=== PATIENT | female | born 1970 | race American Indian/Alaskan Native ===

== ENCOUNTER 2020-12-17 20:58 | Emergency (ER) | payer OTHER ==
--- NOTE | 2020-12-18 02:06 | XRay Report ---
CHEST 1 VIEW 12/18/2020 12:51 AM INDICATION / CLINICAL INFORMATION: cough. COMPARISON: None available. FINDINGS: SUPPORT DEVICES: None. HEART / MEDIASTINUM: No significant abnormality. LUNGS / PLEURA: Mild opacity left base laterally. Right lung clear. No pneumothorax. ADDITIONAL FINDINGS: No significant additional findings. IMPRESSION: Left basilar atelectasis versus developing pneumonia. Signer Name: Jaswant Newsome MD Signed: 12/18/2020 2:02 AM Workstation Name: [id number]
[2020-12-18] MEDS ORDERED: AZITHROMYCIN/NS 500 MG/250 ML 500 MG/250 ML BAG IV ONE (03:45)
[2020-12-18] MEDS ORDERED: SODIUM CHLORIDE 0.9% 1000 ML 1,000 ML IV ONE (03:45)
[2020-12-18] MEDS ORDERED: LIDOCAINE-MPF (1%) 10 MG/1 ML VIAL 5 ML INFILTRATI ONE (03:45)
[2020-12-18] MEDS ORDERED: ALBUTEROL 2.5 MG/3 ML NEBU IH ONE (03:45)
[2020-12-18] MEDS ORDERED: IPRATROPIUM 0.02% NEBU 2.5 ML IH ONE (03:45)
--- NOTE | 2020-12-18 03:49 | Emergency Department Report ---
ED General Adult HPI - General Chief complaint: Upper Respiratory Infection Stated complaint: COUGH UP MUCUS Time Seen by Provider: 12/18/20 03:40 Source: patient Mode of arrival: Ambulatory Limitations: No Limitations - History of Present Illness Initial comments: 50-year-old female patient presents to emergency department with complaints of productive cough for 1 week. Patient did not receive her COVID-19 vaccination series. Patient has no known history of pre-existing lung conditions. Denies fever, chills, chest pain, shortness of breath, wheezing, hemoptysis, vomiting, diarrhea. Denies all other complaints at this time. - Related Data Previous Rx's Medication Instructions Recorded Last Taken Type Amoxicillin/Potassium Clav 2,000 mg PO BID 7 Days tab.er.12h 12/18/20 Unknown Rx [Augmentin XR 1000MG 12HR] Azithromycin [Zithromax] 250 mg PO DAILY #5 tablet 12/18/20 Unknown Rx Benzonatate [Tessalon Perles] 200 mg PO Q8HR #20 capsule 12/18/20 Unknown Rx metFORMIN [Glucophage] 500 mg PO BID 10 Days tablet 12/18/20 Unknown Rx Allergies Allergy/AdvReac Type Severity Reaction Status Date / Time No Known Allergies Allergy Verified 12/18/20 01:23 ED Review of Systems ROS: Stated complaint: COUGH UP MUCUS Other details as noted in HPI Other: GENERAL: Negative for fever, chills, weight change, anorexia, fatigue. ENT: Negative for ear pain, difficulty hearing, sore throat, nasal congestion, epistaxis. CARDIOVASCULAR: Negative for chest pain, palpitations, lower extremity swelling. PULMONARY: Positive for cough. GASTROINTESTINAL: Negative for abdominal pain, nausea, vomiting, diarrhea, constipation. MUSCULOSKELETAL: Negative for joint pain, joint swelling, myalgias, back pain, neck pain. NEUROLOGICAL: Negative for headache, seizure, syncope, paresthesias, weakness. INTEGUMENTARY: Negative for erythema, rash, diaphoresis, laceration, ecchymosis. HEMATOLOGICAL: Negative for hemoptysis, hematemesis, hematochezia, hematuria. PSYCHIATRIC: Negative for hallucinations, suicidal ideation, homicidal ideation, anxiety, depression. ED Past Medical Hx - Past Medical History Previous Medical History?: Yes Hx Hypertension: Yes - Surgical History Past Surgical History?: Yes Additional Surgical History: knee surgery, tubal ligation - Social History Smoking Status: Never Smoker Substance Use Type: None - Medications Home Medications: Home Medications Medication Instructions Recorded Confirmed Last Taken Type Amoxicillin/Potassium Clav 2,000 mg PO BID 7 Days tab.er.12h 12/18/20 Unknown Rx [Augmentin XR 1000MG 12HR] Azithromycin [Zithromax] 250 mg PO DAILY #5 tablet 12/18/20 Unknown Rx Benzonatate [Tessalon Perles] 200 mg PO Q8HR #20 capsule 12/18/20 Unknown Rx metFORMIN [Glucophage] 500 mg PO BID 10 Days tablet 12/18/20 Unknown Rx ED Physical Exam - General Limitations: No Limitations - Other Other exam information: General: Awake and alert. No acute distress. Head: Atraumatic, normocephalic. Eyes: EOMI. Pupils are equal and round. Normal sclera and conjunctiva. ENT: Oral mucosa is moist. Normal pharyngeal exam. Neck: Supple. No lymphadenopathy. Pulmonary: Productive cough on exam. No respiratory distress. Rhonchi and expiratory wheezing heard posteriorly along the right lower lobe. Cardiac: Tachycardic. Pulses are palpable and equal bilaterally. No lower extremity cyanosis or edema. Skin: Warm and dry. No rashes. Abdomen: Soft, non-tender, non-protuberant. No guarding, rigidity, or rebound. Bowel sounds are normal. No organomegaly or masses noted. Back: Normal alignment. No CVA tenderness. Extremities: Symmetrical. Full range of motion intact. Neurological: Alert and oriented, appropriately interactive, no focal deficits. Psych: Cooperative. Appropriate mood and affect. Speech is evenly metered. Thoughts are logically construed. ED Course Vital Signs 12/18/20 01:20 Temperature 98.7 F Pulse Rate 129 H Respiratory 18 Rate Blood Pressure 151/109 [Left] O2 Sat by Pulse 96 Oximetry ED Medical Decision Making - Lab Data Result diagrams: 12/18/20 03:53 12/18/20 03:53 - Radiology Data [facility] [address] [place] [address] XRay Report Signed Patient: MURIEL ADAN MR#: [id number] : 1970 Acct:[id number] Age/Sex: 50 / F ADM Date: 12/17/20 Loc: ED Attending Dr: Ordering Physician: ED MD SANIA Date of Service: 12/18/20 Procedure(s): XR chest 1V ap Accession Number(s): [id number] cc: MARK LUI MD Fluoro Time In Minutes: CHEST 1 VIEW 12/18/2020 12:51 AM INDICATION / CLINICAL INFORMATION: cough. COMPARISON: None available. FINDINGS: SUPPORT DEVICES: None. HEART / MEDIASTINUM: No significant abnormality. LUNGS / PLEURA: Mild opacity left base laterally. Right lung clear. No pneumothorax. ADDITIONAL FINDINGS: No significant additional findings. IMPRESSION: Left basilar atelectasis versus developing pneumonia. Signer Name: Jasawnt Newsome MD Signed: 12/18/2020 2:02 AM Workstation Name: [id number] Transcribed By: ES Dictated By: Jaswant Newsome MD Electronically Authenticated By: Jaswant Newsome MD Signed Date/Time: 12/18/20201 DD/ 0 TD/TT: - Medical Decision Making Differential diagnosis including but not limited to: pneumonia, congestive heart failure, COPD, pleural effusion, dehydration, electrolyte abnormality Patient presents emergency department with complaints of a cough. Tachycardic on arrival. No hypoxia, no respiratory distress. Chest x-ray findings suggestive of pneumonia. Treated empirically with IV Azithromycin and Rocephin. Labs significant for hyperglycemia. Patient has no known history of diabetes. Venous pH within normal limits. Patient will be started on Metformin at the time of discharge as well as antibiotics for her pneumonia and symptomatic treatment for her cough. Lifestyle modifications were discussed and importance of prompt PCP follow-up was emphasized. Care of patient transferred to Mesha Mesa PA-C at change of shift pending reassessment of vital signs after IV fluids and urinalysis results. Critical care attestation.: If time is entered above; I have spent that time in minutes in the direct care of this critically ill patient, excluding procedure time. ED Disposition Clinical Impression: Diabetes mellitus, new onset Pneumonia Qualifiers: Pneumonia type: due to unspecified organism Laterality: left Lung location: lower lobe of lung Qualified Code(s): J18.9 - Pneumonia, unspecified organism Disposition: HOME / SELF CARE / HOMELESS Is pt being admited?: No Does the pt Need Aspirin: No Condition: Stable Instructions: Bacterial Pneumonia (ED), Diabetes Mellitus Type 2 in Adults (ED), Type 2 Diabetes Mellitus, Diagnosis, Adult, Community-Acquired Pneumonia, Adult Additional Instructions: Take Tessalon as directed for cough. Take Augmentin with food as directed. Take Zithromax with food as directed. Increase your dietary intake of probiotic rich foods while taking these medications. Rest. Drink plenty of fluids. Wash hands frequently to prevent disease transmission. Do not share food or drinks with others. Start taking Metformin as directed. Reduce your dietary sodium/sugar intake. You must follow-up with a primary care provider this week for your diabetes as well as your pneumonia. Call today to schedule an appointment. See referral information below. Return to the emergency department immediately for new or worsening symptoms. Specifically, return to the emergency department immediately for fever, shortness of breath, chest pain, dehydration, or any other concerns. Prescriptions: Amoxicillin/Potassium Clav [Augmentin XR 1000MG 12HR] 2,000 mg PO BID 7 Days tab.er.12h metFORMIN [Glucophage] 500 mg PO BID 10 Days tablet Benzonatate [Tessalon Perles] 200 mg PO Q8HR #20 capsule Azithromycin [Zithromax] 250 mg PO DAILY #5 tablet Referrals: ARI CLEMENTE MD [Staff Physician] - 3-5 Days [facility] [Outside] - 3-5 Days [facility] [Outside] - 3-5 Days [facility] [Outside] - 3-5 Days [facility] [Provider Group] - 3-5 Days Forms: Work/School Release Form(ED)
[2020-12-18] MEDS ORDERED: cefTRIAXone/NS 1 GM/50 ML 1 GM/50 ML BAG IV ONE (03:50)
[2020-12-18 04:24] LABS: Basophils % (Auto) 0.2 % (0.0-1.8); Hematocrit 39.9 % (30.3-42.9); Hemoglobin 12.4 gm/dl (10.1-14.3); Lymphocytes # (Auto) 1.6 K/mm3 (1.2-5.4); Lymphocytes % (Auto) 21.2 % (13.4-35.0); Mean Corpuscular HGB Conc 31 % (30-34); Monocytes # (Auto) 0.8 K/mm3 (0.0-0.8); Monocytes % (Auto) 10.6 % (0.0-7.3); Platelet Count 356 K/mm3 (140-440); Red Blood Count 6.35 M/mm3 (3.65-5.03)
[2020-12-18 04:26] LABS: Mean Corpuscular Volume 63 fl (79-97)
[2020-12-18 04:27] LABS: Red Cell Distribution Width 20.3 % (13.2-15.2)
[2020-12-18 04:36] LABS: Alanine Aminotransferase 18 units/L (7-56); Albumin 3.9 g/dL (3.9-5); Blood Urea Nitrogen 9 mg/dL (7-17); Calcium 9.6 mg/dL (8.4-10.2); Hemolysis Index 2
[2020-12-18 04:41] LABS: BUN/Creatinine Ratio 18
[2020-12-18 09:16] VITALS: BP 151/88
[2020-12-18 09:55] LABS: Bacteria,Urine 4+ /HPF (Negative); Bilirubin,Urine NEG (Negative); Blood,Urine SM (Negative); Color,Urine Yellow (Yellow); Hyaline Casts,Urine 59 /LPF; Mucus,Urine 2+ /HPF; Urobilinogen,Urine < 2.0 mg/dL (<2.0)
--- NOTE | 2020-12-19 09:52 | Electrocardiograph Report ---
[facility] Test Date: 2020-12-18 Test Time: 01:27:52 Pat Name: MURIEL ADAN Department: Room: Gender: F Completion Supervisor: DAYNA : 1970 Requested By: GARRETT HEWITT Order Number: [id number] Reading MD: Juan George Measurements Intervals [place] Rate: 125 P: 52 ID: [id number] QRS: 12 QRSD: 85 T: 30 QT: 311 QTc: 449 Interpretive Statements Sinus tachycardia No previous ECG available for comparison Electronically Signed On 12-19-2020 9:52:15 EDT by Juan George
== END 2020-12-18 09:35 | disposition home or self-care (01) ==
LOC: ED 20:58
DX: E11.8 Type 2 diabetes mellitus with unspecified complications (principal); J18.9 Pneumonia, unspecified organism; I10 Essential (primary) hypertension
CPT/HCPCS: 36415; 71045; 80053; 81001; 82805; 83735; 85025; 93005; 94640; 96365; 96367; 99284; J0456; J0696; J7030